=== PATIENT | female | born 1995 | race Two or more races ===

== ENCOUNTER 2018-09-21 05:49 | Emergency (ER) | payer OTHER ==
[2018-09-21] MEDS ORDERED: IBUPROFEN 600 MG TABLET PO STA (06:00)
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
[2018-09-21 06:09] VITALS: BP 127/83
[2018-09-21 06:17] LABS: BASOPHILS % (AUTO) 0.3 %; EOSINOPHILS % (AUTO) 0.2 %; HGB - HEMOGLOBIN 13.8 g/dL (12.0-16.0); LYMPHOCYTES # (AUTO) 2.1 10^3/uL (1.5-3.5); LYMPHOCYTES % (AUTO) 18.3 %; MEAN CORPUSCULAR HEMOGLOBIN 28.2 pg (27.0-31.0); MEAN CORPUSCULAR HGB CONC 32.9 g/dL (32.0-36.0); MEAN CORPUSCULAR VOLUME 85.9 fL (81.0-99.0); MEAN PLATELET VOLUME 9.8 fL (7.9-10.8); MONOCYTES # (AUTO) 0.7 10^3/uL (0.0-1.0); MONOCYTES % (AUTO) 6.3 %; NEUTROPHILS # (AUTO) 8.7 10^3/uL (1.5-6.6); NEUTROPHILS % (AUTO) 74.6 %; PLT - PLATELET COUNT 238 10^3/uL (130-450); RED BLOOD COUNT 4.89 10^6/uL (4.20-5.40); RED CELL DISTRIBUTION WIDTH 13.3 % (12.0-15.0); WHITE BLOOD COUNT 11.7 x10^3/uL (4.8-10.8)
--- NOTE | 2018-09-21 06:30 | XRAY Report ---
Reason: injury left foot/toes, with bruising base 5th toe Procedure Date: 09/21/2018 Accession Number: [id number] / [id number] Procedure: XR - Foot 3 View LT CPT Code: FULL RESULT: EXAM: LEFT FOOT RADIOGRAPHY EXAM DATE: 09/21/2018 06:25 AM. CLINICAL HISTORY: Injury left foot/toes, with bruising base 5th toe. COMPARISON: None. TECHNIQUE: 3 views. FINDINGS: Bones: There is a transverse fracture of the distal aspect, proximal phalanx of the fifth digit. No other fractures. Joints: Normal. No subluxations. Soft Tissues: Normal. No soft tissue swelling. IMPRESSION: Transverse fracture of the distal aspect, proximal phalanx, fifth digit. RADIA
[2018-09-21 06:33] LABS: ACETAMINOPHEN < 10 ug/mL (10-30); ALBUMIN 4.3 g/dL (3.2-5.5); ALBUMIN/GLOBULIN RATIO 1.3 (1.0-2.2); ALKALINE PHOSPHATASE 52 IU/L (42-121); ALT ALANINE AMINOTRANSFERASE 21 IU/L (10-60); AST ASPARTATE AMINOTRANSFERASE 27 IU/L (10-42); BILIRUBIN,TOTAL 0.6 mg/dL (0.2-1.0); BUN - BLOOD UREA NITROGEN 10 mg/dL (6-20); CALCIUM 8.9 mg/dL (8.5-10.3); CARBON DIOXIDE - CO2 22 mmol/L (21-32); CHLORIDE 109 mmol/L (101-111); GFR - MDRD 68 (>89); GLUCOSE 109 mg/dL (70-100); LIPASE 29 U/L (22-51); SALICYLATE < 6.0 mg/dL; SODIUM 143 mmol/L (135-145); TOTAL PROTEIN 7.7 g/dL (6.7-8.2)
--- NOTE | 2018-09-21 08:52 | ED Physician Documentation ---
ED Addendum - Addendum Addendum: 09/21/18 08:50 23-year-old female who was intoxicated and feeling suicidal voluntarily came to the emergency department and this morning she is feeling well and did not want to wait for the health and social care teacher and left the department. She eloped and I was unable to make it into her room from another patient's room prior to her leaving.
== END 2018-09-21 08:50 | disposition left against medical advice (07) ==
LOC: ED 05:49
DX: R45.851 Suicidal ideations (principal); F32.9 Major depressive disorder, single episode, unspecified; F10.120 Alcohol abuse with intoxication, uncomplicated; S90.411A Abrasion, right great toe, initial encounter; S90.32XA Contusion of left foot, initial encounter; F17.200 Nicotine dependence, unspecified, uncomplicated
CPT/HCPCS: 36415; 80053; 80307; 80320; 80329; 83690; 84443; 85025; 99283

== ENCOUNTER 2018-09-21 20:53 | Emergency (ER) | payer OTHER ==
[2018-09-21 20:59] VITALS: BP 102/68
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
[2018-09-21] MEDS ORDERED: IBUPROFEN 800 MG TABLET PO STA (22:22)
== END 2018-09-21 22:30 | disposition home or self-care (01) ==
LOC: ED 20:53
DX: S90.411A Abrasion, right great toe, initial encounter (principal); S92.502A Displaced unspecified fracture of left lesser toe(s), initial encounter for closed fracture; W20.8XXA Other cause of strike by thrown, projected or falling object, initial encounter; F17.200 Nicotine dependence, unspecified, uncomplicated; R45.851 Suicidal ideations; F32.9 Major depressive disorder, single episode, unspecified; F10.120 Alcohol abuse with intoxication, uncomplicated
CPT/HCPCS: 36415; 73630; 80320; 80329; 83690; 99282; 99283; 99284; A9270; 80053; 80307; 84443; 85025